=== PATIENT | female | born 1960 | race Caucasian/White ===

== ENCOUNTER 2024-05-24 07:39 | Observation (INO) | payer OTHER ==
[2024-05-24] VITALS (45 sets, daily range): BP systolic 94–135; BP diastolic 50–100
[~2024-05-24] VITALS: Ht 165.1 cm; Wt 62.2 kg
--- NOTE | 2024-05-24 07:39 | NUR ---
PATIENT ARRIVED TO ER VIA EMS. PATIENT AWAKE, ALERT AND STABLE. NO DISTRESS NOTED. PHYSICIAN AT BEDSIDE.
--- NOTE | 2024-05-24 07:40 | NUR ---
PER EMS PT RECEIVED 324 OF ASPIRIN AND 2 NITRO EN ROUTE.
[2024-05-24 08:06] LABS: BASO% 0.6 % (0-3); EOS% 1.4 % (0-8); HEMATOCRIT 51.4 % (37.0-47.0); HEMOGLOBIN 17.5 g/dl (12.0-16.0); IMMATURE GRANULOCYTES 0.2 % (0.0-5.0); LYMPH% 26.5 % (15-41); MEAN CELL VOLUME 92.4 fL CALC (80.0-100.0); MEAN CORPUSCULAR HGB 31.5 pG CALC (26.0-32.0); MONO% 6.6 % (2-13); NEUT# 6.68 thou/uL (2.00-7.15); NEUT% 64.7 % (42-76); RED BLOOD COUNT 5.56 mill/uL (4.20-5.60); RED CELL DISTRI WIDTH 12.3 % (11.5-15.5)
[2024-05-24 08:24] LABS: ALBUMIN 4.7 g/dL (3.2-5.0); CREATININE 0.7 mg/dL (0.5-1.0); POTASSIUM 3.7 mmol/l (3.5-5.1); TOTAL PROTEIN 8.3 g/dL (6.3-8.2)
--- NOTE | 2024-05-24 08:31 | NUR ---
LAB RESULTS AVAILABLE, NOTIFIED. PT RESTING AT THIS TIME
[2024-05-24] MEDS ORDERED: ACETAMINOPHEN 500 MG TAB PO ONE ×2 (09:15→14:50)
--- NOTE | 2024-05-24 09:19 | NUR ---
PT REPORTS HEADACHE, MD NOTIFIED. LIGHTS DIMMED AND PT MEDICATED. IMAGING RESULTS PENDING
--- NOTE | 2024-05-24 10:36 | NUR ---
Reassessment of patient completed. No distress noted.
[2024-05-24] MEDS ORDERED: LISINOPRIL5 MG PO (10:42)
[2024-05-24] MEDS ORDERED: CYANOCOBAL1000 MCG/M IM (10:45)
[2024-05-24] MEDS ORDERED: MELOXICAM7.5 MG PO (10:45)
[2024-05-24] MEDS ORDERED: ZYRTEC10 MG PO (10:46)
[2024-05-24] MEDS ORDERED: SERTRALINE50 MG PO (10:47)
[2024-05-24] MEDS ORDERED: METFORMIN500 M2 PO (10:47)
[2024-05-24] MEDS ORDERED: ALLERGY RE50 MCG/ACT IN (10:48)
[2024-05-24] MEDS ORDERED: BENTYL10 M1 IM (10:49)
[2024-05-24] MEDS ORDERED: ADDERALL20 MG PO (10:52)
[2024-05-24] MEDS ORDERED: ALBUTEROL108 MCG/AC IN (10:54)
--- NOTE | 2024-05-24 11:23 | NUR ---
REASSESSMENT OF PT COMPLETED. PT SLEEPING. LABS PENDING
--- NOTE | 2024-05-24 12:25 | NUR ---
Reassessment of patient completed. PT EATING LUNCH
--- NOTE | 2024-05-24 13:30 | NUR ---
PT RESTING WITH FAMILY MEMBER AT BEDSIDE. LABS PENDING
--- NOTE | 2024-05-24 14:39 | NUR ---
ALL LAB RESULTS AVAILABLE, NOTIFIED
[2024-05-24] MEDS ORDERED: METOCLOPRAMIDE HCL 10 MG/2 ML SDV IV ONE (14:50)
[2024-05-24] MEDS ORDERED: MAGNESIUM SULFATE HEPTAHYDRATE 50 ML IV ONE (14:50)
--- NOTE | 2024-05-24 15:38 | NUR ---
PT MEDICATED AND RESTING. FAMILY AT BEDSIDE. WAITING FOR ROOM ON MS
[2024-05-24] MEDS ORDERED: ACETAMINOPHEN 325 MG/TAB PO PRN (16:15)
[2024-05-24] MEDS ORDERED: Zaleplon 5 MG/CAP PO PRN (16:15)
[2024-05-24] MEDS ORDERED: MAGNESIUM HYDROXIDE 30 ML UDC PO PRN (16:15)
[2024-05-24] MEDS ORDERED: ALBUTEROL SULFATE 8 GM INH IN PRN (16:20)
--- NOTE | 2024-05-24 16:34 | NUR ---
PT RESTING AT THIS TIME. WAITING FOR ROOM IN MS
--- NOTE | 2024-05-24 16:50 | NUR ---
REPORT GIVEN TO SAVANNA IN ICU. PT TO GO TO BED 5
[2024-05-24] MEDS ORDERED: INSULIN LISPRO 100 UNITS/ML ML SC SCH (17:00)
--- NOTE | 2024-05-24 17:58 | NUR ---
PT IN ROOM, BROUGHT VIA WHEEL CHAIR BY NORRIS RAPHAEL.
--- NOTE | 2024-05-24 19:30 | NUR ---
awakens easily. denies chest pain. cardiac telemetry shows sinus rhythm. saline lock in place. po fluid taken well. voids per bathroom. @ bedside.
[2024-05-24] MEDS ORDERED: ENOXAPARIN SODIUM 40 MG/0.4 ML SYR SC SCH (21:00)
--- NOTE | 2024-05-25 00:01 | NUR ---
eyes closed. no distress. telemetry shows sinus rhythm hr 61, lab here. blood drawn.
--- NOTE | 2024-05-25 04:00 | NUR ---
awake. no c/o chest pain voiced. traffic monitor specialist shows sinus rhythm. @ bedside.
[2024-05-25 06:20] LABS: CHOLESTEROL HDL RATIO 4.8 (<4.4 (CALC))
[2024-05-25 07:01] VITALS: BP 132/97
--- NOTE | 2024-05-25 07:20 | NUR ---
PT SITTING UP IN BED WITH IN BED SIDE CHAIR. PT EATING BREAKFAST. ASSESSMENT COMPLETED. RESP CLEAR, EVEN, AND UNLABORED ON ROOM AIR. NORMAL S1,S2 HEART RYTHM. PT STATED HAVING A BM LAST NIGHT. NO NAUSEA OR CHEST PAIN AT THIS TIME. STRONG RADIAL AND PEDIAL PULSES. 20G LAC IN PLACE. NO S/S OF DISTRESS. BED IN THE LOWEST POSITION AND CALL FANG WITHIN REACH.
--- NOTE | 2024-05-25 07:30 | NUR ---
UPON ARRIVAL, NURSING ADMISSION WAS NOT COMPLETED. THIS WAS CAUGHT DURING SHIFT CHANGE AND I WILL BE COMPLETING ADMISSION SET NOW.
[2024-05-25 08:00] VITALS: BP 152/66
[2024-05-25] MEDS ORDERED: HYDROCHLOROT12.5 M1 PO (08:13)
[2024-05-25] MEDS ORDERED: NITROSTAT0.4 MG SL (08:15)
[2024-05-25] MEDS ORDERED: ASPIRIN ADULT L81 M2 PO (08:15)
[2024-05-25] MEDS ORDERED: ATORVASTATIN CA10 MG PO (08:16)
[2024-05-25] MEDS ORDERED: hydroCHLOROthiazide 12.5 MG/CAP PO SCH (09:00)
[2024-05-25] MEDS ORDERED: SERTRALINE HCL 50 MG/TAB PO SCH (09:00)
[2024-05-25] MEDS ORDERED: LISINOPRIL 5 MG/TAB PO SCH (09:00)
[2024-05-25 10:01] VITALS: BP 129/80
[2024-05-25 11:00] VITALS: BP 113/69
--- NOTE | 2024-05-25 11:52 | NUR ---
Discharge instructions given. Patient verbalizes understanding of same. Discharged in stable condition via Wheelchair to Home with spouse. All belongings sent with pt.
== END 2024-05-25 11:50 | disposition home or self-care (01) | DRG 313 ==
LOC: ED 07:39 → ED-I 08:05 → ED 08:05 → ED-I 11:35 → ED 16:33 → ICU 16:34
PROVIDERS: Family Medicine; ADMIT Internal Medicine; ATTEND Internal Medicine
DX: R07.9 Chest pain, unspecified (principal); I10 Essential (primary) hypertension; E11.9 Type 2 diabetes mellitus without complications; E78.5 Hyperlipidemia, unspecified; F17.200 Nicotine dependence, unspecified, uncomplicated; Z79.84 Long term (current) use of oral hypoglycemic drugs
CPT/HCPCS: J1650; J1815; J2765; J3475